=== PATIENT | male | born 1955 | race Caucasian/White ===

== ENCOUNTER → 2016-09-09 | Outpatient (CLI) | payer BC ==
[~2016-09-09] MED LIST: ACET-1256 PO; ALFU1TAB37 PO; ATOR-54 PO; GABA-113 PO; NAPR1TAB9 PO; OXYC-164 PO; PANT40TA PO; SERT50TA PO; SILD1TAB19 PO; TAMS0.4C38 PO
[2016-09-09 13:31] VITALS: BP 132/80; PULSE 99; TEMP 36.9; O2SAT 100
--- NOTE | 2016-09-09 17:12 | Radiation Oncology Follow-Up ---
Radiation Oncology Follow-Up Date of Visit Sep 09, 2016. (Paola Jensen PA-C) Reason For Visit Six-month follow-up (Paola Jensen PA-C) Radiation Completion Date seed implant on 06-26-2015 , had external beam radiation theray in [facility] (Paola Jensen PA-C) Diagnosis (1) Prostate cancer Status: Resolved Onset Date: 02/22/2015 Permanent Comment: DIAGNOSIS: Prostate, adenocarcinoma, lala 3 + 4, PSA 7.910, cT1cN0, group IIA Rising PSA, pretreatment PSA 7.910 Status post biopsy 02/22/2015 Prostate volume 19.4 Prostate density 0.407 Status post prostate seed implant 06/26/2015 as boost received 8500 cGy 46 seeds were placed Status post external beam radiation therapy at [place]. Treatment was stopped early due to side effects. Received approximate 21 fractions. 3780 cGy Last Edited By: Paola Jensen on Feb 05, 2016 15:25 (Paola Jensen PA-C) History of Present Illness Mr. Belle is a 59-year-old gentleman who presents with intermediate risk prostate cancer status post prostate seed implantation completed in June 2015. He received 85 Gy with a Cs-131 interstitial implant. He will have his external beam radiation therapy completed in [place], [place]. He now presents for his 1 month follow-up evaluation. Currently he is doing relatively well overall. He does have some intermittent urinary obstructive symptoms. Today, his IPSS score is 24/35. He does state that his urinary symptoms are getting better over time. He is taking Uroxatral. He denies any hematuria. He denies any rectal bleeding. He is satisfied with his decision to undergo a prostate seed implant. Following completion of the prostate seed implant he then underwent external beam radiation therapy in [place]. Patient stated that he had multiple symptoms with difficulty with urination and dysuria. External beam treatment was stopped after 21 fractions. (Paola Jensen PA-C) Interim History He continues to have difficulty with urinary symptoms. He'll have sharp discomfort with urination. This can be up to level IX in pain. When seen and has last visit he was given a Medrol Dosepak. He stated that this did not help with the symptoms. In the past his been tried on Azo [id number]. Then he was given a prescription for Pyridium. Neither helped with his symptoms. He has tried ibuprofen 600 mg 3 times a day with no help. He had been seen in urology. It is felt that this is post treatment side effects. Today he completed AUA score sheet and gave a score of 14. His score at the last visit was 7. He completed and expanded prostate cancer index composite for clinical practice and gave a score of 0 of 12 in urinary incontinence symptoms. He gave a score of 7 of 12 in urinary irritation symptoms. He gave a score 0 12 and bowel symptoms. He gave a score of 6 of 12 and sexual symptoms. He gave a score of 0 12 and hormonal vitality symptoms. His total was 13 of 60. (Paola Jensen PA-C) Allergies Coded Allergies: No Known Allergies (Unverified , 06/26/15) Home Medications Scheduled Acetaminophen (Tylenol), 1,500 MG PO PRN Atorvastatin (Lipitor), 20 MG PO QAM Pantoprazole (Protonix), 40 MG PO QAM Scheduled PRN Naproxen (Aleve), 220 MG PO Q6 PRN for Muscle Spasms Review of Systems Gastrointestinal: Symptoms: WNL Oral: Symptoms: No Problems Respiratory: Symptoms: WNL Urinary: Symptoms: Pain, Burning, Nocturia Comments: nocturia times 2 , urgency , slow to start stream at times Skin: Symptoms: No Problems (Paola Jensen PA-C) Physical Exam Vital Signs Date Time Temp Pulse Resp B/P Pulse Ox O2 Delivery O2 Flow Rate FiO2 09/09/16 13:31 36.9 99 18 132/80 100 Pain: Side: Bilateral Patient Pain Scale: 0 - 10 Initial Pain Intensity: 0.0 Fatigue: None General Appearance: no apparent distress Eyes: normal inspection, EOMI ENT: normal ENT inspection, hearing grossly normal Respiratory/Chest: lungs clear, no respiratory distress, no accessory muscle use Cardiovascular: regular rate, rhythm, no gallop, no murmur Abdomen: non tender, soft, no organomegaly Extremities: no pedal edema Neurologic/Psychiatric: no motor/sensory deficits, alert, normal mood/affect Skin: warm/dry (Paola Jensen PA-C) Laboratory Studies Test 09/09/16 14:04 09/09/16 14:08 Prostate Specific Antigen 0.904 ng/ml (0.000-4.000) (Paola Jensen PA-C) Assessment & Plan Plan: The patient was also seen today by Dr. Viera. PSA was drawn prior examination. He also checked a urinalysis and we'll check urine USABILITY ENGINEER. He will be notified as the results of the studies. He did ask for Levitra and prescription was given by Dr. Viera. Prescription was given for Ultram to help with the pain. He was given 50 mg. He'll take one pill 3 times a day as needed #90 and 2 refills were given. We have recommended a urology evaluation due to the ongoing symptoms. He may have radiation cystitis/urethritis. Depending on the severity of the condition he may need to be referred for hyperbaric oxygen therapy. The process of treatment was reviewed with the patient. He stated he would proceed with therapy if this is indicated. He will be seen in urology tomorrow for an evaluation. We will await the final outcome head is evaluation. We asked him to return to our office in 6 months. (Paola Jensen PA-C) I agree with note created by Paola Jensen PA-C. I reviewed the patient's chart and information with her. I have examined and evaluated the patient. I reviewed relevant clinical information and answered the patient's and/or family' s questions. (Veeral. Viera MD) Total Time In Follow-Up I spent 25 minutes speaking to the patient performing examination. I spent 15 minutes reviewing information and completing this note. (Paola Jensen PA-C) I spent 15 minutes examining and counseling the patient. (Veeral. Viera MD) Copy To Jennifer Badillo; Severiano Berry M.D.
== END | disposition home or self-care (01) ==
LOC: C.ONC 13:12
PROVIDERS: ATTEND Physician Assistant Medical
DX: Z08 Encounter for follow-up examination after completed treatment for malignant neoplasm (principal); Z92.3 Personal history of irradiation; Z85.46 Personal history of malignant neoplasm of prostate

== ENCOUNTER → 2017-03-10 | Outpatient (CLI) | payer BC ==
[~2017-03-10] MED LIST changes: -ACET-1256 PO; -ALFU1TAB37 PO; -NAPR1TAB9 PO; -SERT50TA PO
[2017-03-10 13:10] LABS: BASO % 0.4 %; BASO ABS # 0.03 K/uL (0-0.2); COMPLETE YES; EOS % 2.7 %; HEMATOCRIT 43.4 % (42-52); IG% 0.3 %; LYMPH % 15.7 %; LYMPH ABS # 1.12 K/uL (1.2-3.4); MEAN CELL VOLUME 87.5 fL (80-100); MEAN CORPUSCULAR HEMOGLOBIN 30.2 pg (25-34); MEAN CORPUSCULAR HGB CONC 34.6 g/dl (32-36); MEAN PLATELET VOLUME 10.6 fL (7.4-10.4); MONO % 9.8 %; NEUT % 71.1 %; PLATELET COUNT 198 K/uL (130-400); RED BLOOD COUNT 4.96 M/uL (4.7-6.1); WHITE BLOOD COUNT 7.15 K/uL (4.8-10.8)
[2017-03-10 13:43] LABS: ALT/SGPT 40 U/L (12-78); BLOOD UREA NITROGEN 20 mg/dl (7-18); BUN/CREATININE RATIO 16.6 (10-20); CALCIUM 9.4 mg/dl (8.5-10.1); CARBON DIOXIDE 28 mmol/L (21-32); CHLORIDE 105 mmol/L (98-107); CHOLESTEROL 135 mg/dl (0-200); GLUCOSE 99 mg/dl (70-99); SODIUM 140 mmol/L (136-145); TRIGLYCERIDES 134 mg/dl (0-150); VERY LOW DENSITY LIPOPROT CALC 27 mg/dl
[2017-03-10 13:53] LABS: ALB/GLOB RATIO 1.3 (0.9-2); ALKALINE PHOSPHATASE 83 U/L (45-117); AST/SGOT 69 U/L (15-37); CHOLESTEROL/HDL RATIO 3.1; HDL CHOLESTEROL 43 mg/dl; LDL CHOLESTEROL CALCULATED 65 mg/dl; THYROID STIMULATING HORMONE 0.628 uIu/ml (0.300-4.500)
== END | disposition home or self-care (01) ==
LOC: C.LABMFLN 09:47
PROVIDERS: ATTEND Physician Assistant
DX: E78.5 Hyperlipidemia, unspecified (principal); K21.9 Gastro-esophageal reflux disease without esophagitis

== ENCOUNTER → 2017-03-18 | Outpatient (CLI) | payer BC ==
[2016-09-09 13:31] VITALS: BP 132/80; PULSE 99
[~2017-03-18] MED LIST changes: +SERT50TA PO
[2017-03-18 13:20] VITALS: BP 145/91; PULSE 72; TEMP 36.5; O2SAT 99
--- NOTE | 2017-03-18 16:39 | Radiation Oncology Follow-Up ---
Radiation Oncology Follow-Up Date of Visit Mar 18, 2017. Reason For Visit 6 month follow-up Radiation Completion Date Seed Implant 06/26/15, External - In [place] Diagnosis (1) Prostate cancer Status: Resolved Onset Date: 02/22/2015 Permanent Comment: DIAGNOSIS: Prostate, adenocarcinoma, lala 3 + 4, PSA 7.910, cT1cN0, group IIA Rising PSA, pretreatment PSA 7.910 Status post biopsy 02/22/2015 Prostate volume 19.4 Prostate density 0.407 Status post prostate seed implant 06/26/2015 as boost received 8500 cGy 46 seeds were placed Status post external beam radiation therapy at [place]. Treatment was stopped early due to side effects. Received approximate 21 fractions. 3780 cGy Last Edited By: Paola Jensen on Feb 05, 2016 15:25 History of Present Illness Mr. Belle had an elevated PSA of 7.910 on 12/26/2014. The patient was then referred to Dr. Stovall who then recommended that the patient undergo a transrectal ultrasound-guided biopsy of the prostate. The patient underwent a biopsy on 02/22/2015 which revealed Lala 3 + 3 disease in the left base and right base in 4-6 course and Lala 3+4 disease in one core with 50% of the core being involved. In total, the patient had 6 out of 20 positive biopsies for prostate adenocarcinoma. There is no perineural invasion identified ( complete pathology report is below). The patient had had a bone scan completed on 03/05/2015 which was negative for metastatic disease. The patient is scheduled to meet with Dr. Maier to discuss surgical management of prostate cancer. We are now seeing him in consultation to discuss radiation therapy.Mr. Belle presents with intermediate risk prostate cancer. Status Post Prostate Seed Implantation Completed in June 2015. He Received 85 Emily with a Cs-131 Interstitial Implant. He Had His External Beam Radiation Therapy Completed in [place], [place]. Following completion of the prostate seed implant he then underwent external beam radiation therapy in [place]. Patient stated that he had multiple symptoms with difficulty with urination and dysuria. External beam treatment was stopped after 21 fractions. Interim History He isn't followed by Dr. Berry. He has been diagnosed with radiation cystitis. He did perform a cystoscopy on him. He was referred to for hyperbaric oxygen therapy. He was treated from November 05 to 12/03/2016. He stated that the discomfort with urination resolved after approximately 20 treatments. Once the hyperbaric oxygen therapy was completed within 1 week his symptoms return. She continues to have severe pain with urination. This occurs 90% of the time. The pain level can be up to a 10. This occurs only with voiding. He was prescribed gabapentin. He has been taking 300 mg daily he does not feel this helps with his symptoms. He had a PSA 09/09/2016. That was found to be 0.904. This was down from 1.930 02/05/2016. He completed an AUA score sheet and gave a score of 3. He completed and expanded prostate cancer index composite for clinical practice and gave a score of 0 of 12 and urinary incontinent symptoms. He gave a score of 5 of 0 in urinary irritation symptoms. He gave a score of 0 of 12 and bowel symptoms. He gave a score of 4 of 12 in sexual symptoms. This would be higher but he does use medication. He gave a score of 6 of 12 in hormonal vitality symptoms. His total was 15 of 60. Allergies Coded Allergies: No Known Allergies (Unverified , 06/26/15) Home Medications Scheduled Atorvastatin (Lipitor), 20 MG PO QAM Gabapentin (Neurontin), 300 MG PO DAILY Pantoprazole (Protonix), 40 MG PO QAM Sertraline (Zoloft), 1 TAB PO DAILY Sildenafil Citrate (Pulmonary (Sildenafil Citrate), PO PRN Tamsulosin Hcl (Flomax), 1 CAP PO DAILY Review of Systems Gastrointestinal: Symptoms: WNL Oral: Symptoms: No Problems Respiratory: Symptoms: WNL, SOB With Exertion Urinary: Symptoms: Pain, Nocturia Comments: Hematuria resolved with hyperbaric tx, sharp pain in penis with urination Skin: Symptoms: No Problems Physical Exam Vital Signs Date Time Temp Pulse Resp B/P (MAP) Pulse Ox O2 Delivery O2 Flow Rate FiO2 03/18/17 13:20 36.5 72 16 145/91 99 Pain: Side: Bilateral Patient Pain Scale: 0 - 10 Initial Pain Intensity: 0.0 Fatigue: None General Appearance: no apparent distress Eyes: normal inspection, EOMI ENT: normal ENT inspection, hearing grossly normal Neck: no adenopathy, thyroid normal Respiratory/Chest: lungs clear, no respiratory distress, no accessory muscle use Cardiovascular: regular rate, rhythm, no gallop, no murmur Abdomen: non tender, soft, no organomegaly Extremities: no pedal edema Neurologic/Psychiatric: no motor/sensory deficits, alert, normal mood/affect Skin: warm/dry Laboratory Studies Test 03/10/17 10:01 03/18/17 14:15 White Blood Count 7.15 K/uL (4.8-10.8) Red Blood Count 4.96 M/uL (4.7-6.1) Hemoglobin 15.0 g/dL (14.0-18.0) Hematocrit 43.4 % (42-52) Mean Corpuscular Volume 87.5 fL (80-100) Mean Corpuscular Hemoglobin 30.2 pg (25-34) Mean Corpuscular Hemoglobin Concent 34.6 g/dl (32-36) Platelet Count 198 K/uL (130-400) Mean Platelet Volume 10.6 fL (7.4-10.4) Neutrophils (%) (Auto) 71.1 % Lymphocytes (%) (Auto) 15.7 % Monocytes (%) (Auto) 9.8 % Eosinophils (%) (Auto) 2.7 % Basophils (%) (Auto) 0.4 % Neutrophils # (Auto) 5.09 K/uL (1.4-6.5) Lymphocytes # (Auto) 1.12 K/uL (1.2-3.4) Monocytes # (Auto) 0.70 K/uL (0.11-0.59) Eosinophils # (Auto) 0.19 K/uL (0-0.5) Basophils # (Auto) 0.03 K/uL (0-0.2) RDW Standard Deviation 40.1 fL (36.4-46.3) RDW Coefficient of Variation 12.6 % (11.5-14.5) Immature Granulocyte % (Auto) 0.3 % Immature Granulocyte # (Auto) 0.02 K/uL (0.00-0.02) Sodium Level 140 mmol/L (136-145) Potassium Level 4.0 mmol/L (3.5-5.1) Chloride Level 105 mmol/L (98-107) Carbon Dioxide Level 28 mmol/L (21-32) Anion Gap 7.0 mmol/L (3-11) Blood Urea Nitrogen 20 mg/dl (7-18) Creatinine 1.20 mg/dl (0.60-1.40) Estimated GFR () 75.2 Estimated GFR (Non- 64.9 BUN/Creatinine Ratio 16.6 (10-20) Random Glucose 99 mg/dl (70-99) Calcium Level 9.4 mg/dl (8.5-10.1) Total Bilirubin 0.8 mg/dl (0.2-1) Aspartate Amino Transferase (AST) 69 U/L (15-37) Alanine Aminotransferase (ALT) 40 U/L (12-78) Alkaline Phosphatase 83 U/L (45-117) Total Protein 7.4 gm/dl (6.4-8.2) Albumin 4.2 gm/dl (3.4-5.0) Globulin 3.2 gm/dl (2.5-4.0) Albumin/Globulin Ratio 1.3 (0.9-2) Triglycerides Level 134 mg/dl (0-150) Cholesterol Level 135 mg/dl (0-200) HDL Cholesterol 43 mg/dl LDL Cholesterol, Calculated 65 mg/dl VLDL Cholesterol, Calculated 27 mg/dl Cholesterol/HDL Ratio 3.1 Thyroid Stimulating Hormone (TSH) 0.628 uIu/ml (0.300-4.500) Prostate Specific Antigen 0.542 ng/ml (0.000-4.000) Assessment & Plan Plan: 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 A PSA was drawn today. He'll be notified as to results. He was seen by Dr. Viera. He will be referred to the pain clinic for evaluation and treatment. He has a recheck appointment with Dr. Berry in one month. We asked him to return to our office in 6 months. He may call if he has any questions or concerns in the interim. Assessment & Plan (Attending) I have spoken to Dr. Garces from pain management. Dr. Garces feels it is appropriate to see the patient in consultation to discuss potential interventions that may help alleviate his dysuria. The patient will be referred to the pain clinic. ADDENDUM: I agree with note created by Paola Jensen PA-C. I reviewed the patient's chart and information with her. I have examined and evaluated the patient. I reviewed relevant clinical information and answered the patient's and /or family's questions. HOSPICE HOME HEALTH AIDE Total Time In Follow-Up I spent 20 minutes speaking to the patient and performing examination. I spent 15 minutes reviewing information in completing this note. Total Time (Attending) In Follow-Up I spent 15 minutes examining and counseling the patient. HOSPICE HOME HEALTH AIDE Copy To Jennifer Badillo; Upendra. Garces M.D.; Severiano Berry M.D.
== END | disposition home or self-care (01) ==
LOC: C.ONC 13:13
PROVIDERS: ATTEND Physician Assistant Medical
DX: Z08 Encounter for follow-up examination after completed treatment for malignant neoplasm (principal); Z92.3 Personal history of irradiation; Z85.46 Personal history of malignant neoplasm of prostate

== ENCOUNTER → 2017-06-26 | Outpatient (CLI) | payer BC ==
[~2017-06-26] MED LIST changes: +BUPR-79 PO; +ESCI10TA17 PO; -OXYC-164 PO
--- NOTE | 2017-06-26 09:53 | DIAGNOSTIC IMAGING REPORT ---
L-SPINE MIN 4 VIEWS ROUTINE CLINICAL HISTORY: [facility]AG[facility] COMPARISON STUDY: No previous studies for comparison. FINDINGS: There is no pathologic bowel dilatation. No fractures or subluxations are visualized. The disc space heights appear well-preserved for age. There is mild to moderate stool the right colon. IMPRESSION: No fractures or subluxations identified. No destructive lesions are visualized on conventional radiographic imaging Electronically signed by: Yo Bazzi M.D. 06/26/2017 9:52 AM Dictated Date/Time: 06/26/2017 9:51 AM
== END | disposition home or self-care (01) ==
LOC: C.RADBC 09:21
PROVIDERS: ATTEND Physician Assistant Medical
DX: M54.5 Low back pain (principal)

== ENCOUNTER → 2017-09-15 | Outpatient (CLI) | payer BC ==
[~2017-09-15] MED LIST changes: +FLM4 PO; -GABA-113 PO; -SERT50TA PO; -TAMS0.4C38 PO; +TRAM-10 PO
[2017-09-15 14:25] LABS: ALBUMIN 3.9 gm/dl (3.4-5.0); TOTAL PROTEIN 7.4 gm/dl (6.4-8.2)
== END | disposition home or self-care (01) ==
LOC: C.LABMFLN 09:21
PROVIDERS: ATTEND Physician Assistant
DX: E78.5 Hyperlipidemia, unspecified (principal)

== ENCOUNTER → 2017-09-15 | Outpatient (CLI) | payer BC ==
[2017-09-15 13:40] VITALS: BP 142/89; PULSE 100; TEMP 36.7; O2SAT 97
--- NOTE | 2017-09-15 16:34 | Radiation Oncology Follow-Up ---
Radiation Oncology Follow-Up Date of Visit Sep 15, 2017. Reason For Visit Six-month follow-up Radiation Completion Date brachyseed therapy at [facility] 06-26-15, XRT at [place] Diagnosis (1) Prostate cancer Status: Resolved Onset Date: 02/22/2015 Permanent Comment: DIAGNOSIS: Prostate, adenocarcinoma, lala 3 + 4, PSA 7.910, cT1cN0, group IIA Rising PSA, pretreatment PSA 7.910 Status post biopsy 02/22/2015 Prostate volume 19.4 Prostate density 0.407 Status post prostate seed implant 06/26/2015 as boost received 8500 cGy 46 seeds were placed Status post external beam radiation therapy at [place]. Treatment was stopped early due to side effects. Received approximate 21 fractions. 3780 cGy Last Edited By: Paola Jensen on Feb 05, 2016 15:25 History of Present Illness Mr. Belle had an elevated PSA of 7.910 on 12/26/2014. The patient was then referred to Dr. Stovall who then recommended that the patient undergo a transrectal ultrasound-guided biopsy of the prostate. The patient underwent a biopsy on 02/22/2015 which revealed Lala 3 + 3 disease in the left base and right base in 4-6 course and Lala 3+4 disease in one core with 50% of the core being involved. In total, the patient had 6 out of 20 positive biopsies for prostate adenocarcinoma. There is no perineural invasion identified ( complete pathology report is below). The patient had had a bone scan completed on 03/05/2015 which was negative for metastatic disease. The patient is scheduled to meet with Dr. Maier to discuss surgical management of prostate cancer. We are now seeing him in consultation to discuss radiation therapy.Mr. Belle presents with intermediate risk prostate cancer. Status Post Prostate Seed Implantation Completed in June 2015. He Received 85 Emily with a Cs-131 Interstitial Implant. He Had His External Beam Radiation Therapy Completed in [place], [place]. Following completion of the prostate seed implant he then underwent external beam radiation therapy in [place]. Patient stated that he had multiple symptoms with difficulty with urination and dysuria. External beam treatment was stopped after 21 fractions. Interim History Over the past 6 months he has been seen and treated by the pain clinic. He was given a nerve block. This was performed in May. He did feel that this greatly helped to relieve his pain. He does feel that the block has now worn off. He has dysuria. This occurs in the penis while voiding. He gives us of pain level of 6. The pain does not radiate to the scrotum. He denies pain of the bladder. He will be seen again a pain management this coming Thursday. He has had a follow-up visits with Dr. Berry and recheck PSAs. His PSA March 18, 2017 was 0.542. Today he gave an AUA score of 7. This was similar to last year. He completed and expanded prostate cancer index composite for clinical practice and gave a score of 0 of 12 and urinary incontinence symptoms. He gave a score of 4 of 12 and urinary irritation symptoms. He gave a score of 0 of 12 and bowel symptoms. He gave a score of 4 of 12 and sexual symptoms. He gives score of 2 of 12 and hormonal vitality symptoms. His total was 10 of 60. He continues on tamsulosin once daily. Allergies Coded Allergies: No Known Allergies (Unverified , 06/26/15) Home Medications Scheduled Atorvastatin (Lipitor), 20 MG PO QAM Bupropion (Wellbutrin Sr), 150 MG PO DAILY Pantoprazole (Protonix), 40 MG PO QAM Sildenafil Citrate (Pulmonary (Sildenafil Citrate), PO PRN Tamsulosin HCl (Tamsulosin HCl), 0.4 MG PO DAILY Scheduled PRN Tramadol (Ultram), 50 MG PO Q8H PRN for Pain Review of Systems Gastrointestinal: Symptoms: WNL Oral: Symptoms: No Problems Respiratory: Symptoms: WNL Urinary: Symptoms: Pain, Nocturia Comments: dysuria on urination, nocturia times 2 Skin: Symptoms: No Problems Other Skin Symptoms: " right hand injury is healing " Physical Exam Vital Signs Date Time Temp Pulse Resp B/P (MAP) Pulse Ox O2 Delivery O2 Flow Rate FiO2 09/15/17 13:40 36.7 100 20 142/89 97 Fatigue: None General Appearance: no apparent distress Eyes: normal inspection, EOMI ENT: normal ENT inspection, hearing grossly normal Respiratory/Chest: lungs clear, no respiratory distress, no accessory muscle use Cardiovascular: regular rate, rhythm, no gallop, no murmur Abdomen: non tender, soft, no organomegaly Neurologic/Psychiatric: no motor/sensory deficits, alert, normal mood/affect Pain Management Patient Reports Pain: No Side: Bilateral Patient Preferred Pain Scale: 0 - 10 Initial Pain Intensity: 0.0 Pain Management Plan He currently denies pain. He does have pain when voiding. This can be up to level 6. He does not require regular daily pain medication. Laboratory Laboratory Results: were reviewed, and pertinent findings noted below Laboratory Comments: Test 09/15/17 09:24 Prostate Specific Antigen 0.221 ng/ml (0.000-4.000) Pathology Pathology Results: were reviewed, and pertinent findings noted in HPI Imaging Imaging Studies: not applicable Assessment & Plan Plan: Patient is also seen today by Dr. Viera. He will be seen at [facility] on Thursday. There is plan for repeat nerve block. He did discuss that he may in the future have an ablation to give a more permanent relief of pain. He will be seeing Dr. Berry in December. PSA was drawn today. He will be notified as to the results. We asked him to return to our office in 1 year. He may call if he has any questions or concerns in the interim. He continues on tamsulosin once daily. Assessment & Plan (Attending) I agree with note created by Paola Jensen PA-C. I reviewed the patient's chart and information with her. I have examined and evaluated the patient. I reviewed relevant clinical information and answered the patient's and/or family' s questions. SENIOR PRINCIPAL PROCESS ENGINEER Total Time In Follow-Up I spent 20 minutes speaking to the patient and performing examination. I spent 15 minutes reviewing information and completing this note. [place] Total Time (Attending) In Follow-Up I spent 15 minutes examining and counseling the patient. SENIOR PRINCIPAL PROCESS ENGINEER Copy To Jennifer Gotti DO; Jennifer Badillo; Severiano Berry M.D.
== END | disposition home or self-care (01) ==
LOC: C.ONC 13:29
PROVIDERS: ATTEND Physician Assistant Medical
DX: Z08 Encounter for follow-up examination after completed treatment for malignant neoplasm (principal); Z92.3 Personal history of irradiation; Z85.46 Personal history of malignant neoplasm of prostate

== ENCOUNTER → 2018-01-07 | Outpatient (CLI) | payer BC ==
[~2018-01-07] MED LIST changes: -ESCI10TA17 PO
== END | disposition home or self-care (01) ==
LOC: C.LABMFLN 08:46
PROVIDERS: ATTEND Physician Assistant
DX: R19.7 Diarrhea, unspecified (principal); R10.84 Generalized abdominal pain